=== PATIENT | female | born 2000 ===

== ENCOUNTER 2025-05-19 20:31 | Emergency (ER) | payer BC, OTHER ==
[2025-05-19 22:54] LABS: #Basophils 0.06 10x3/uL (0.0-0.2); #Eosinophils 0.22 10x3/uL (0.0-0.5); #Monocytes 0.59 10x3/uL (0.0-1.1); #Neutrophils 3.33 10x3/uL (1.5-8.4); %Basophils 0.9 % (0.0-2.0); %Eosinophils 3.1 % (0.0-6.0); %Lymphocytes 40.2 % (18.0-47.0); %Monocytes 8.4 % (0.0-10.0); %Neutrophils 47.3 % (40.0-75.0); Hematocrit 41.4 % (34.9-44.5); Hemoglobin 13.6 g/dL (12.0-15.5); Mean Corpuscular Hemoglobin 28.8 pg (27.0-33.0); Mean Corpuscular Volume 87.5 fL (81.6-98.3); Platelet Count 300 10x3/uL (150-450); Red Blood Cell (RBC) Count 4.73 10x6/uL (3.90-5.03); White Blood Cell (WBC) Count 7.04 10x3/uL (3.5-10.5)
[2025-05-19 23:03] LABS: ALT (SGPT) 34 U/L (Less than 34); AST (SGOT) 23 U/L (11-34); Albumin 4.1 g/dL (3.1-4.5); Alkaline Phosphatase 42 U/L (40-110); Anion Gap 13 mmol/L (10-20); BUN (Urea Nitrogen) 12 mg/dL (7.0-18.7); Bilirubin, Total 0.3 mg/dL (0.3-1.2); Calc. Creatinine Clearance 0 mL/min (70-130); Calcium 8.8 mg/dL (7.8-10.44); Carbon Dioxide 20 mmol/L (22-29); Chloride 110 mmol/L (98-107); Globulin 3.4 g/dL (2.4-3.5); Glucose 97 mg/dL (70-105); Potassium 3.8 mmol/L (3.5-5.1); Sodium 139 mmol/L (136-145)
[2025-05-19 23:15] LABS: BHCG - Serum Negative (NEGATIVE); Pregs Control Bar Appear? YES (CONTROL BAR)
[2025-05-19 23:16] LABS: Pregs Control Background? CLEAR/WHITE (CLR/WHITE)
== END 2025-05-20 00:06 | disposition home or self-care (01) ==
LOC: CSHERS 20:31
DX: R42 Dizziness and giddiness (principal); R29.700 NIHSS score 0
CPT/HCPCS: 70450; 80053; 84703; 85025